=== PATIENT | male | born 1985 | race Caucasian/White ===

== ENCOUNTER 2021-09-13 20:37 | Emergency (ER) | payer OTHER, SELFPAY ==
[2021-09-13 21:46] VITALS: BP 123/79; PULSE 98; RESP 18; TEMP 37; O2SAT 97; BMI 37.4
--- NOTE | 2021-09-13 22:58 | ED_ITS ---
HPI - Skin/Abscess/Foreign Bdy General Chief complaint: Skin/Abscess/Foreign Body <MATTHEW Talley - Last Filed: 09/13/21 23:06> Stated complaint: left hand laceration <MATTHEW Talley - Last Filed: 09/13/21 23:06> Time Seen by Provider: 09/13/21 22:22 <MATTHEW Talley - Last Filed: 09/13/21 23:06> Source: patient <MATTHEW Talley - Last Filed: 09/13/21 23:06> Mode of arrival: ambulatory <MATTHEW Talley - Last Filed: 09/13/21 23:06> Limitations: no limitations <MATTHEW Talley Last Filed: 09/13/21 23:06> History of Present Illness HPI narrative: This is a 36-year-old male no significant medical history presenting to the emergency department with a laceration to the left 4th distal aspect of digit status post cutting himself with a razor while cutting sheet rock. Patient tells me clean the area well and applied liquid Band-Aid. He is not up to date on a tetanus shot. He denies numbness, tingling,, fevers chills. No foreign body sensation and patient tells me that very low probability of foreign body being in there. He tells me that this happened this morning. <MATTHEW Talley - Last Filed: 09/13/21 23:06> MD complaint: laceration <MATTHEW Talley - Last Filed: 09/13/21 23:06> Onset (ago): day(s) (1) <MATTHEW Talley Last Filed: 09/13/21 23:06> Location: L hand <MATTHEW Talley Last Filed: 09/13/21 23:06> Severity: mild <MATTHEW Talley Last Filed: 09/13/21 23:06> Quality: other ( throbbing ) <MATTHEW Talley Last Filed: 09/13/21 23:06> Pain Consistency: constant <MATTHEW Talley - Last Filed: 09/13/21 23:06> Relieving factors: none <MATTHEW Talley - Last Filed: 09/13/21 23:06> Exacerbating factors: none <MATTHEW Talley - Last Filed: 09/13/21 23:06> Context: none <MATTHEW Talley - Last Filed: 09/13/21 23:06> Associated symptoms: denies other symptoms <MATTHEW Talley - Last Filed: 09/13/21 23:06> Treatments prior to arrival: OTC topical medication, antibiotic (Antibiotic ointment) and other (Liquid Band-Aid.) <MATTHEW Talley - Last Filed: 09/13/21 23:06> Related Data Home medications: Previous Rx's Medication Instructions Recorded doxycycline hyclate 100 mg capsule 100 mg PO BID 10 Days #20 cap 09/13/21 <MATTHEW Talley - Last Filed: 09/13/21 23:06> Allergies/Adverse reactions: Allergies Allergy/AdvReac Type Severity Reaction Status Date / Time No Known Allergies Allergy Verified 09/13/21 21:46 <MATTHEW Talley - Last Filed: 09/13/21 23:06> Review of Systems Review of Systems: Constitutional : No Fever, No Chills, Cardiovascular : No Chest Pain, No SOB Respiratory : No Dyspnea Gastrointestinal : No abdominal pain Musculoskeletal : No Joint Swelling Skin : No rash, positive skin laceration Neuro : No Weakness, No Numbness Psych : No SI/HI <MATTHEW Talley - Last Filed: 09/13/21 23:06> Yes all other systems are reviewed and are negative <MATTHEW Talley - Last Filed: 09/13/21 23:06> FORMERLY [facility], [facility] Past Medical History Attestation statement: The following information was validated with the patient. <MATTHEW Talley - Last Filed: 09/13/21 23:06> Source: old records reviewed and nursing notes reviewed <MATTHEW Talley - Last Filed: 09/13/21 23:06> Social History Social History: Social History Advance Directives: No Advance Directives Information Provided: No <MATTHEW Talley Last Filed: 09/13/21 23:06> Physical Exam Vital Signs: Vital Signs: Last Vital Signs Temp 98.6 F 09/13/21 21:46 Pulse 98 09/13/21 21:46 Resp 18 09/13/21 21:46 BP 123/79 09/13/21 21:46 Pulse Ox 97 09/13/21 21:46 BMI result Body Mass Index 37.4 VSS <MATTHEW Talley - Last Filed: 09/13/21 23:06> Appearance: Alert.? Oriented X3.? No acute distress.? Head: Normocephalic, atraumatic, no step-offs or deformities Eyes: Pupils equal, round and reactive to light.? ENT: Pharynx normal.? Neck: Normal inspection.? Neck supple.? CVS: Normal heart rate and rhythm.? Pulses normal.? Respiratory: No respiratory distress.? Breath sounds normal.? Abdomen: Soft and nontender.? Skin: Skin warm and dry.? Normal skin color.? Normal skin turgor.? Extremities: No lower extremity edema.? No calf ttp. 5/5 strength to bilateral upper and lower extremities + laceration on distal aspect of fourth digit Back: No midline tenderness, no C-spine tenderness, full range of motion, no CVA tenderness bilaterally Neuro: Oriented X 3.? No motor deficit.? No sensory deficit. CN 2-12 intact <MATTHEW Talley Last Filed: 09/13/21 23:06> Course Reevaluation(s) Reevaluation #1: Applied a small amount of Dermabond to the edges of wound to ensure it is well sealed. Will start patient on doxycycline p.o. b.i.d. x7 days. Gave patient worrisome signs and symptoms advised him to return if any of these arise. Comfortable with discharge <MATTHEW Talley - Last Filed: 09/13/21 23:06> Time: 23:03 <MATTHEW Talley - Last Filed: 09/13/21 23:06> MDM - Skin/Abscess/Foreign Bdy MDM Narrative Medical decision making narrative: 2250 36 yo m presents with lac to distal aspect of left 4th digit cut himself with a clean razor while cutting sheet rack. Not up-to-date on tetanus shot. Physical examination significant for a laceration that is closed with liquid Band-Aid/glue. Not actively bleeding. No evident foreign bodies. Capillary refill less than 2 seconds to all upper extremities. Range of motion intact. Sensory and motor intact. Based off history and physical examination there is no need to suture this laceration as removing the liquid Band-Aid could potentially make this worse. Will put patient on antibiotics. Plan antibiotic treatment <MATTHEW Talley - Last Filed: 09/13/21 23:06> Medical Records Attestation: I reviewed the patient's medical records. <MATTHEW Talley - Last Filed: 09/13/21 23:06> Lab Data Attestation: I reviewed the patient's lab results. <MATTHEW Talley - Last Filed: 09/13/21 23:06> Critical Care Time Critical Care Time Critical Care Time: No <MATTHEW Talley Last Filed: 09/13/21 23:06> Discharge Plan Discharge Clinical Impression: Laceration of finger <MATTHEW Talley Last Filed: 09/13/21 23:06> Patient Disposition: Home, Self-Care <MATTHEW Talley Last Filed: 09/13/21 23:06> Instructions: Laceration (ED) <MATTHEW Talley Last Filed: 09/13/21 23:06> Additional Instructions: Take your medications as prescribed. If you were prescribed antibiotics today, it is important that you take your medication to their entirety, do not skip any doses, do not finish them early. Follow-up with your primary care provider this week. Return to the emergency department with new or worsening symptoms. Such as fevers, chills, chest pain, shortness of breath, nausea, vomiting, dizziness, headache, vision changes, lethargy, numbness or tingling In case of emergency call 911 <MATTHEW Talley Last Filed: 09/13/21 23:06> Prescriptions: New doxycycline hyclate 100 mg capsule 100 mg PO BID 10 Days Qty: 20 0RF <MATTHEW Talley - Last Filed: 09/13/21 23:06> Referrals: Shorty Duque MD [Primary Care Provider] - 2 days <MATTHEW Talley - Last Filed: 09/13/21 23:06> Stand Alone Forms: Work/School Release <MATTHEW Talley - Last Filed: 09/13/21 23:06> Interventions: ED Discharge Assessment Last Done: 09/13/21 23:47 <MATTHEW Talley - Last Filed: 09/13/21 23:06> Discharge Date/Time: 09/13/21 23:48 <MATTHEW Talley - Last Filed: 09/13/21 23:06>
[2021-09-13] MEDS: Diphth,Pertus(ACell),Tet Adult 0.5 ML SYRINGE IM (23:37)
== END 2021-09-13 23:48 | disposition home or self-care (01) ==
PROVIDERS: Emergency Provider Emergency Medicine; PCP Internal Medicine Endocrinology, Diabetes & Metabolism
DX: S61.215A Laceration without foreign body of left ring finger without damage to nail, initial encounter (principal); W26.8XXA Contact with other sharp object(s), not elsewhere classified, initial encounter; Y93.9 Activity, unspecified; Y92.9 Unspecified place or not applicable; Y99.9 Unspecified external cause status
CPT/HCPCS: 90471; 90715; 99283; 99284

== ENCOUNTER 2023-06-10 14:25 | Outpatient (AMB) | payer OTHER, SELFPAY ==
[2023-06-10 14:27] VITALS: BP 118/72; PULSE 67; TEMP 36.9; O2SAT 97; BMI 39.1
--- NOTE | 2023-06-10 14:27 | MHC.OFFWIV ---
Intake Vital Signs 06/10/23 14:27 Height 5 ft 5 in Weight 106.708 kg BMI 39.1 BP 118/72 Blood Pressure Location Rt brachial Position Sitting Pulse 67 Pulse Source Pulse Oximeter Temp 98.4 F Temp Source Oral Pulse Oximetry (%) 97 Oxygen Delivery Method Room Air Intake Visit Reasons: EP LFT ear pain migraine hearing loss Intake Note: pt is here for c.o left ear pain with migraines and hearing loss Patient Tobacco Use Status: Never used Tobacco Allergies No Known Allergies Allergy (Verified 06/10/23 14:27) Do you need a note to return to daycare/school/sports/work: Yes HPI HPI Comments History of Present Illness Details 1441 38 year old male presents w/ significant other complaning of severe L ear pain X few days worsening becoming acutely delirious per significant other. Patient appears extremely uncomfortable on exam, unable to sit still, involuntary movements. Bizarre presentation. Reports subjective chills no fevers. No recent sick contacts. Physical exam significant bulging and erythema in the left ear canal and tympanic membrane, patient appears very uncomfortable. According to significant other he is becoming more and more delirious/confused during the exam, patient is having hard time focusing. Will transfer patient via EMS to [facility], discussed this with patient and significant other. This is not normal presentation for typical ear infection. Other differentials must be ruled out [facility] Social History Patient Tobacco Use Status: Never used Tobacco Review of Systems Const Details: Constitutional : No Weight loss, No Fever, No Chills, No Fatigue, No Malaise ENT/Mouth : No sore throat, No Rhinorrhea, + ear pain Eyes: No Eye Pain, No Swelling, No Redness Cardiovascular : No Chest Pain, No SOB, No Dyspnea on Exertion, No Orthopnea, No Edema, No Palpitations Respiratory : No Cough, No Sputum, No Wheezing Gastrointestinal : No Nausea, No Vomiting, No Diarrhea, No Constipation, No abdominal Pain, No Hematochezia, No Melena Genitourinary : No Dysuria, No Urinary Frequency, No Hematuria, Musculoskeletal : No joint pain, No Myalgias, No Joint Swelling Skin : No Skin Lesions, No rash Neuro : No Weakness, No Numbness, No Dizziness, No Headache Psych : No Anxiety/Panic, No Depression All other systems reviewed and are negative All systems reviewed & are unremarkable except as noted in HPI and below Physical Exam Vital Signs: Last Vital Signs Temp 98.4 F 06/10/23 14:27 Pulse 67 06/10/23 14:27 BP 118/72 06/10/23 14:27 Pulse Ox 97 06/10/23 14:27 Oxygen Delivery Method Room Air 06/10/23 14:27 BMI result Body Mass Index 39.1 vss Appearance: Alert.? Oriented X3.? No acute distress.? Head: Normocephalic, atraumatic, no step-offs or deformities Eyes: Pupils equal, round and reactive to light.? ENT: Pharynx normal.? + significant bulging and erythema in the left ear canal and tympanic membrane, patient appears very uncomfortable. Neck: Normal inspection.? Neck supple.? CVS: Pulses normal.? Respiratory: No respiratory distress.? Abdomen: Soft and nontender.? Skin: Skin warm and dry.? Normal skin color.? Normal skin turgor.? Extremities: 5/5 strength to bilateral upper and lower extremities Neuro: Oriented X 3.? No motor deficit.? No sensory deficit. CN 2-12 intact Assessment & Plan Assessment & Plan (1) Otitis media: Code(s): H66.90 - Otitis media, unspecified, unspecified ear Plan EMS [place] [facility] C[place] Level of Care Code Est Pt Level 4 (50752) Diagnoses Otitis media H66.90
== END 2023-06-10 15:03 | disposition home or self-care (01) ==
PROVIDERS: PCP Internal Medicine Endocrinology, Diabetes & Metabolism; Visit Provider Physician Assistant
DX: H66.90 Otitis media, unspecified, unspecified ear (principal)
CPT/HCPCS: 99214

== ENCOUNTER 2023-06-10 15:12 | Emergency (ER) | payer OTHER, SELFPAY ==
--- NOTE | ~2023-06-10 | CT_ITS ---
EXAMINATION: CT HEAD WITHOUT CONTRAST CLINICAL INFORMATION: Left ear pain. Rule out mastoiditis. COMPARISON: None available. TECHNIQUE: Contiguous axial imaging was performed from the skull base to vertex without intravenous administration of contrast. This CT examination was performed using dose optimization techniques as appropriate, variously including the following: *Automated exposure control *Adjustment of mA and/or kV according to patient size (this includes techniques or standardized protocols for targeted exams where dose is matched to indication/reason for exam; i.e. extremities or head) *Use of iterative reconstruction technique DLP: 763 mGy-cm. FINDINGS: There is no evidence of an extra-axial collection. There is no evidence of intra-axial or extra-axial hemorrhage. The ventricles and extra-axial CSF spaces are normal . Remy-white matter differentiation is normal. No mass, mass effect or infarct. No skull fracture. There is soft tissue opacification of the sinuses, suggestive of pansinusitis. There is minimal soft tissue opacification of the dependent left middle ear.. There may be some bulging of the tympanic membrane inferiorly. No erosive changes of the bones seen to suggest cholesteatoma this probably represents otitis media. There is underaeration/sclerosis of the bilateral mastoid air cells which may be sequela of chronic mastoiditis. The right middle ear appears clear. CT/CT head/brain wo IV con IMPRESSION: Pansinusitis. Underpneumatized/sclerotic bilateral mastoids which may be sequela of chronic mastoiditis. Left middle ear effusion without erosive change to suggest cholesteatoma. Slight bulging tympanic membrane. This probably represents otitis media.
[2023-06-10 15:25] VITALS: BP 118/72; BP 120/87; PULSE 67; RESP 18; TEMP 36.9; O2SAT 97; O2SAT 98; BMI 38.9
--- NOTE | 2023-06-10 16:01 | ED_ITS ---
HPI - Ear Problem General Chief complaint: Ear Problems Stated complaint: L EAR PAIN W/BALANCE/HEARING ISSUES,FROM URG CARE Time Seen by Provider: 06/10/23 15:50 Source: patient Mode of arrival: ambulatory Limitations: no limitations History of Present Illness HPI Narrative: 38-year-old male came in for evaluation of left ear pain started since this morning. Patient declined any trauma to the ear, no fever, no chills, never had this pain in the past, patient was seen at a walk-in clinic was sent to the ED for further evaluation. Patient declined any confusion or disorientation. Related Data Previous Rx's Medication Instructions Recorded amoxicillin 875 mg-potassium 1 tab PO BID #14 tabs 06/10/23 clavulanate 125 mg tablet ibuprofen 600 mg tablet 600 mg PO Q8H PRN fever or pain 06/10/23 #14 tabs Allergies Allergy/AdvReac Type Severity Reaction Status Date / Time No Known Allergies Allergy Verified 06/10/23 14:27 Review of Systems Review of Systems: All other systems are reviewed and are negative Constitutional: Reports as per HPI and Reports no additional constitutional complaints Eyes: Reports as per HPI and Reports no additional eye complaints Reports system reviewed and no additional complaints, except as documented Cardiovascular: Reports as per HPI and Reports no additional cardiovascular complaints Respiratory: Reports as per HPI and Reports no additional respiratory complaints Gastrointestinal: Reports as per HPI and Reports no additional gastrointestinal complaints Genitourinary: Reports no additional female genitourinary complaints Musculoskeletal: Reports no additional musculoskeletal complaints Skin/Breast: Reports system reviewed and no additional complaints, except as docu Psychiatric: Reports no additional psychiatric complaints Endocrine: Reports no additional endocrine complaints Hematologic/Lymphatic: Reports no additional hematologic/lymphatic complaints Allergic/Immunologic: Reports no additional allergic/immunologic complaints Reports system reviewed and no additional complaints, except as documented and Reports Abnormal speech present [facility] Social History Social History Patient Tobacco Use Status: Never used Tobacco Smoked in Last 30 Days: No Use of substances other than those prescribed or required for medical reasons: No Advance Directives: No Physical Exam Vital Signs: Vital Signs: Last Vital Signs Temp 98.4 F 06/10/23 15:25 Pulse 67 06/10/23 15:25 Resp 18 06/10/23 15:25 BP 120/87 06/10/23 15:25 Pulse Ox 98 12/06/23 15:25 O2 Del Method Room Air 06/10/23 15:25 BMI result Body Mass Index 38.9 Vital signs have been reviewed and appear to be correct. Blood pressure elevated. Heart rate normal. Respiratory rate normal. Temperature normal. Oxygen saturation normal. Appearance: Alert. Oriented X3. No acute distress. Head: Normal external exam. Normocephalic. Atraumatic. No Garcia signs noted. No raccoon eyes noted Eyes: PERRLA. EOMI. Conjunctiva and sclera normal. Eyelids normal. ENT: Left TM erythema, normal external auditory canal no foreign body, no redness or tenderness over mastoid process, Pharynx normal. Uvula midline. Moist mucous membranes. No trismus noted. No drooling noted. No muffled voice noted. Neck: Normal inspection. Neck supple. FROM. No adenopathy. Thyroid Normal. No meningeal signs. No neck mass noted. CVS: Normal heart rate and rhythm. Heart sound normal. No murmurs noted. Pulses normal throughout. Respiratory: No respiratory distress. Painless inspiration. Breath sounds normal. No wheezes/rales/rhonchi noted. Chest nontender. No accessory muscle usage noted or decreased air movement noted. Abdomen: Soft and nontender. Bowel sounds normal in all 4 quadrants. No distention noted. No organomegaly noted. No visible injury noted. Back: No CVA tenderness. Full range of motion noted. Skin: Skin warm and dry. Normal skin color. Normal skin turgor. No rashes/lesions/lacerations noted. Extremities: No lower extremity edema. Extremities exhibit normal range of motion. Extremities nontender. Neuro: Oriented X 3. Cranial nerve exam: II-XII are grossly intact No motor deficit. No sensory deficit. Reflexes normal. Course Reevaluation(s) Reevaluation #1: Acute otitis media patient already feels better after was given ibuprofen and 1st dose of Augmentin will discharge the patient on Augmentin for 1 week with ibuprofen if needed for pain and follow-up with ENT. No clinical evidence of mastoiditis on the physical exam or head CT. Time: 18:59 Medications Administered Discontinued Medications Generic Name Dose Route Start Last Admin Trade Name Freq PRN Reason Stop Dose Admin Amoxicillin/Clavulanate Potassium 875 mg 06/10/23 15:59 06/10/23 16:23 Amoxicillin/Potassium Clav 875 Mg Tablet PO 06/10/23 16:00 875 mg ONCE ONE Administration Ibuprofen 800 mg 06/10/23 15:59 06/10/23 16:21 Ibuprofen 600 Mg Tablet PO 06/10/23 16:00 800 mg ONCE ONE Administration Medical Decision Making Differential Diagnosis Differential Diagnoses: The differential diagnosis associated with the presentation includes (Otitis media, otitis externa, mastoiditis, tympanic membrane perforation. Foreign body.) Admission/Observation Consideration of admission/observation: Escalation of care including admission/observation considered Independent Interpretation I performed an independent interpretation of an: CT Scan Radiology Impression Discussion of test interpretation with radiology: I have reviewed the radiologist's reading. (Pansinusitis. Underpneumatized/sclerotic bilateral mastoids which may be sequela of chronic mastoiditis. Left middle ear effusion without erosive change to suggest cholesteatoma. Slight bulging tympanic membrane. This probably represents otitis media.) Discharge Plan Discharge Clinical Impression: Otitis media Patient Disposition: Home, Self-Care Instructions: Ear Infection (ED) Prescriptions: New amoxicillin-pot clavulanate 875-125 mg tablet 1 tab PO BID Qty: 14 0RF ibuprofen 600 mg tablet 600 mg PO Q8H PRN (Reason: fever or pain) Qty: 14 0RF Referrals: Marco A Leone [Physician] -
[2023-06-10] MEDS: Ibuprofen 600 MG TABLET 800 MG PO (16:21)
[2023-06-10] MEDS: Amoxicillin/Potassium Clav 875 MG TABLET PO (16:23)
[2023-06-10 20:00] VITALS: BP 120/68; PULSE 78; RESP 18; TEMP 36.6; O2SAT 97
== END 2023-06-10 20:18 | disposition home or self-care (01) ==
PROVIDERS: Emergency Provider Emergency Medicine
DX: H66.92 Otitis media, unspecified, left ear (principal); J32.4 Chronic pansinusitis
CPT/HCPCS: 70450; 99284